=== PATIENT | male | born 1980 | race Caucasian/White ===

== ENCOUNTER 2017-04-12 02:50 | Emergency (ER) | payer OTHER ==
[~2017-04-12] VITALS: Ht 180.3 cm; Wt 86.4 kg
[2017-04-12] MEDS ORDERED: ACET-784 PO (02:56)
[2017-04-12] MEDS ORDERED: ACETAMINOPHEN 500 MG TABLET PO ONE (03:15)
[2017-04-12 05:18] LABS: INFLUENZA TYPE B NEGATIVE FOR TYPE B (NEGATIVE)
[2017-04-12 05:19] LABS: INFLUENZA TYPE A POSITIVE FOR TYPE A (NEGATIVE)
[2017-04-12 05:59] VITALS: BP 130/79
== END 2017-04-12 06:08 | disposition home or self-care (01) ==
LOC: EMS 02:50
DX: J10.1 Influenza due to other identified influenza virus with other respiratory manifestations (principal); R06.02 Shortness of breath; I48.91 Unspecified atrial fibrillation; Z88.6 Allergy status to analgesic agent
CPT/HCPCS: 87804; 99284